=== PATIENT | female | born 1955 | race Caucasian/White ===

== ENCOUNTER → 2017-02-19 | Outpatient (CLI) | payer OTHER | END | disposition home or self-care (01) | LOC: LAB.O 08:40 | PROVIDERS: ATTEND Family Medicine | DX: E78.2 Mixed hyperlipidemia (principal); I10 Essential (primary) hypertension ==

== ENCOUNTER → 2017-04-01 | Outpatient (CLI) | payer OTHER | END | disposition home or self-care (01) | LOC: YCFC.O 11:54 | PROVIDERS: ATTEND Nurse Practitioner Family | DX: N39.0 Urinary tract infection, site not specified (principal) ==

== ENCOUNTER → 2017-04-08 | Outpatient (CLI) | payer OTHER | END | disposition home or self-care (01) | LOC: LAB.O 08:50 | PROVIDERS: ATTEND Family Medicine | DX: E74.39 Other disorders of intestinal carbohydrate absorption (principal); E78.2 Mixed hyperlipidemia ==

== ENCOUNTER → 2017-05-17 | Outpatient (CLI) | payer OTHER | END | disposition home or self-care (01) | LOC: LAB.O 08:27 | PROVIDERS: ATTEND Family Medicine | DX: E11.9 Type 2 diabetes mellitus without complications (principal) ==

== ENCOUNTER → 2017-06-24 | Outpatient (CLI) | payer OTHER ==
--- NOTE | 2017-06-28 12:08 | MAM ---
EXAM DESCRIPTION: 3D Diagnostic, Bilateral CLINICAL HISTORY: 62 yearsFemaleSCREENING. No complaints. Maternal grandmother with ovarian cancer. Mother with breast cancer. Hysterectomy. No HRT. COMPARISON: Digital 2-D bilateral screening examinations 02/25/2014 and 05/06/2012. No prior reports available. Reports from prior examinations also reviewed. Report from prior examination also reviewed. TECHNIQUE: Bilateral CC and MLO projection full-field images, 3-D tomosynthesis digital mammographic technique. Also bilateral synthesized CC/ MLO full-field images. CAD not utilized. FINDINGS: The breast parenchymal density pattern is: Scattered areas of fibroglandular density. No skin thickening or nipple retraction multiple bilateral solitary microcalcifications and also groups of large rounded coarse calcifications. 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 [place] mass density in the anterior third of the lower inner quadrant of the left breast at the 800 clock position contains a small calcification and is stable since the study in 2011, most likely a fibroadenoma. Other nodular densities with lobulated borders are also stable and most likely fibroadenomas. No new focal mass density, no focal asymmetry , and no suspicious microcalcifications bilaterally. Stable mammograms compared to prior study, taking into account differences in mammographic technique IMPRESSION: BI-RADS CATEGORY: 2 - BENIGN FINDINGS. FOLLOW UP: Routine digital bilateral screening, one year interval from May 2017. Written communication explaining the findings and follow-up, will be mailed to the patient and referring health care provider. According to the [employer], yearly mammograms are recommended starting at age 40 and continuing as long as a woman is in good health. Any breast change noted on a breast self-exam should be reported promptly to the patient's healthcare provider. Breast MRI is recommended for women with an approximately 20-25% or greater lifetime risk of breast cancer, including women with a strong family history of breast or ovarian cancer and women who have been treated for Hodgkin's disease. A negative mammographic report should not delay tissue diagnosis in patients with significant clinical history or physical findings. Extremely dense breast tissue limits the sensitivity of digital mammography. Electronically signed by: Juan West MD 06/28/2017 12:06 PM CDT Workstation: [id number]
== END ==
LOC: MAMMO 14:00
PROVIDERS: ATTEND Family Medicine
DX: Z12.31 Encounter for screening mammogram for malignant neoplasm of breast (principal)

== ENCOUNTER → 2017-08-12 | Outpatient (CLI) | payer OTHER | END | disposition home or self-care (01) | LOC: LAB.O 09:00 | PROVIDERS: ATTEND Family Medicine | DX: N30.00 Acute cystitis without hematuria (principal); E11.9 Type 2 diabetes mellitus without complications ==

== ENCOUNTER → 2017-08-21 | Outpatient (CLI) | payer OTHER ==
--- NOTE | 2017-08-22 09:27 | RAD ---
EXAM DESCRIPTION: IVP Intravenous Pyelogram CLINICAL HISTORY: 62 years Female, PERSONAL HISTORY OF URINARY (TRACT) INFECTIONS COMPARISON: None. TECHNIQUE: Supine AP logistics engineer image of the abdomen. Nonionic IV contrast injected followed by immediate AP kidneys. Five minute Supine AP abdomen and pelvis. 10 minute Bilateral supine oblique AP abdomen and pelvis. 10 minute AP pelvis. 15 minute AP supine abdomen and pelvis. 20 minute AP prone abdomen and pelvis. Post void AP supine abdomen and pelvis. No adverse reactions. FINDINGS: On the preliminary logistics engineer film, there is radiodense object overlying the left upper pole of the kidney as well as fecal material in the colon. Bowel gas pattern is nonspecific. Spondylosis in the lower lumbar spine. No other radiodense objects overlying the urinary urinary tracts. Bilateral kidneys with normal enhancement and normal position. No enlargement effacement or displacement of the bilateral collecting systems. Bilateral ureters normal caliber and position. Urinary bladder well-distended with contrast material with no filling defects. No effacement or displacement. No significant urinary retention after voiding. IMPRESSION: Excretory urogram is unremarkable. Difficult to evaluate for small radiodense stones in the kidneys bilaterally due to fecal material in the overlying colon. No hydronephrosis or hydroureter. Bladder unremarkable. CT scan of the abdomen and pelvis without IV contrast is a more sensitive examination to detect urinary tract stones. Electronically signed by: Juan West MD 08/22/2017 9:25 AM CDT
== END ==
LOC: RAD 08:59
PROVIDERS: ATTEND Family Medicine
DX: Z87.440 Personal history of urinary (tract) infections (principal)

== ENCOUNTER → 2017-09-30 | Outpatient (CLI) | payer OTHER | END | disposition home or self-care (01) | LOC: LAB.O 09:50 | PROVIDERS: ATTEND Family Medicine | DX: N30.00 Acute cystitis without hematuria (principal) ==

== ENCOUNTER → 2017-11-20 | Outpatient (CLI) | payer OTHER | END | disposition home or self-care (01) | LOC: LAB.O 08:59 | PROVIDERS: ATTEND Family Medicine | DX: E11.9 Type 2 diabetes mellitus without complications (principal); I10 Essential (primary) hypertension ==

== ENCOUNTER → 2018-01-03 | Outpatient (CLI) | payer BC, OTHER | LOC: LAB.O 14:13 | PROVIDERS: ATTEND Family Medicine | DX: N30.00 Acute cystitis without hematuria (principal) ==

== ENCOUNTER → 2018-01-21 | Outpatient (CLI) | payer BC, OTHER | LOC: LAB.O 09:02 | PROVIDERS: ATTEND Family Medicine | DX: E11.9 Type 2 diabetes mellitus without complications (principal) ==

== ENCOUNTER → 2018-06-10 | Outpatient (CLI) | payer BC, OTHER ==
--- NOTE | 2018-06-13 09:20 | MAM ---
EXAM DESCRIPTION: 3D Diagnostic, Bilateral: Digital Mammography CLINICAL HISTORY: 62 yearsFemaleNIPPLE DISCHARGE . No other complaints. Mother with breast cancer. Childbirth. Hysterectomy. No HRT. COMPARISON: Digital screening bilateral study 02/25/2014. 2-D bilateral diagnostic study 06/24/2017. Report from prior examination also reviewed. TECHNIQUE: Bilateral CC LM MLO projection full-field images, 3-D tomosynthesis digital mammographic technique. CAD not utilized. FINDINGS: The breast parenchymal density pattern is: Scattered areas of fibroglandular density. No skin thickening or nipple retraction scattered bilateral coarse calcifications and soft tissue densities. Most of the soft tissue densities containing groups of calcifications and are stable since the prior study. There are also groups of calcifications and solitary calcifications not associated with mass densities. Stable since the prior study. No new focal, stellate mass or density, focal asymmetry , and no suspicious microcalcifications bilaterally. Stable mammograms compared to prior study, taking into account differences in mammographic technique IMPRESSION: BI-RADS CATEGORY: 2 - BENIGN FINDINGS. FOLLOW UP: Routine digital bilateral screening, one year interval from May 2018. Written communication explaining the IMPRESSION and follow-up, will be mailed to the patient and referring health care provider. According to the [employer], yearly mammograms are recommended starting at age 40 and continuing as long as a woman is in good health. Any breast change noted on a breast self-exam should be reported promptly to the patient's healthcare provider. Breast MRI is recommended for women with an approximately 20-25% or greater lifetime risk of breast cancer, including women with a strong family history of breast or ovarian cancer and women who have been treated for Hodgkin's disease. A negative mammographic report should not delay tissue diagnosis in patients with significant clinical history or physical findings. Extremely dense breast tissue limits the sensitivity of digital mammography. Electronically signed by: Juan West MD 06/13/2018 9:19 AM CDT
== END ==
LOC: MAMMO 14:00
PROVIDERS: ATTEND Family Medicine
DX: N64.52 Nipple discharge (principal)
CPT/HCPCS: 77066; G0279

== ENCOUNTER → 2018-06-24 | Outpatient (CLI) | payer BC, OTHER | LOC: LAB.O 08:31 | PROVIDERS: ATTEND Family Medicine | DX: N64.52 Nipple discharge (principal) ==

== ENCOUNTER → 2018-08-20 | Outpatient (CLI) | payer BC, OTHER | LOC: LAB.O 08:38 | PROVIDERS: ATTEND Family Medicine | DX: N64.52 Nipple discharge (principal) ==

== ENCOUNTER → 2018-09-05 | Outpatient (CLI) | payer BC, OTHER ==
--- NOTE | 2018-09-05 17:11 | US ---
EXAM DESCRIPTION: Breast,Right: Ultrasound CLINICAL HISTORY: 63 yearsFemaleNIPPLE DISCHARGE. Intermittent in right breast since May 2018. Various colors and consistency of the discharge. Now dark, not bloody. COMPARISON: Digital diagnostic tomosynthesis bilateral breast 06/10/2018. TECHNIQUE: Transcutaneous scanning of the right breast utilizing vivas-scale and Doppler modes. Scanning performed by the hospitality services manager and Dr. West. FINDINGS: Scanning of the retroareolar right breast in all 4 quadrants. Mixed heterogeneous echotexture, predominantly fatty more than fibroglandular. At the 900 clock position, is an elongated hypoechoic structure surrounded by echogenic tissue. No abnormal vascularity. The hypoechoic segment ranges in size from 3.5 to 5.5 mm. This could represent a lymph node or a duct. No distinct cyst. No abnormal vascularity, parenchymal edema, or large calcifications. Overlying skin is unremarkable. IMPRESSION: BI-RADS CATEGORY: 3 - PROBABLY BENIGN. Management: Short interval (6-month) follow-up right breast ultrasound and diagnostic right breast digital mammography.. The FINDINGS and the FOLLOW-UP plan were reviewed in person with the patient after the examination. Written communication explaining the IMPRESSION and FOLLOW-UP will be mailed to the patient and referring care provider. Electronically signed by: Juan West MD 09/05/2018 5:10 PM CDT
== END ==
LOC: US 13:30
PROVIDERS: ATTEND Family Medicine
DX: R92.2 Inconclusive mammogram (principal)

== ENCOUNTER 2018-09-26 05:25 | Outpatient (CLI) | payer BC, OTHER ==
[2018-09-26] MEDS ORDERED: ceFAZolin SODIUM 1 GM VIAL ONE (06:59)
[2018-09-26] MEDS ORDERED: LACTATED RINGERS 1,000 ML ONE (06:59)
[2018-09-26] MEDS ORDERED: SODIUM CHL 0.9% 100ML MINI-BAG 100 ML IVPB ONE (06:59)
[2018-09-26] MEDS ORDERED: LIDOCAINE 1% 10 ML VIAL INJ ONE (07:00)
[2018-09-26] MEDS ORDERED: PROPOFOL 200 MG/20 ML VIAL IV ONE (07:00)
[2018-09-26 10:15] VITALS: O2SAT 95
[2018-09-26] MEDS ORDERED: SODIUM BICARBONATE VIAL 50 MEQ/50 ML VIAL ONE (11:43)
[2018-09-26] MEDS ORDERED: LIDOCAINE 1% 50 ML VIAL INJ ONE (11:43)
[2018-09-26] MEDS ORDERED: MIDAZOLAM INJ 2 MG/2 ML VIAL ONE ×2 (11:43→11:51)
[2018-09-26] MEDS ORDERED: fentaNYL CITRATE INJ 50 MCG/ML AMP ONE (11:43)
[2018-09-26 13:44] VITALS: BP 185/100; TEMP 98
== END 2018-09-26 12:50 | disposition home or self-care (01) ==
LOC: AMB 05:25 → EDSTATUS 11:15 → AMB 12:50
PROVIDERS: ATTEND Surgery
DX: N64.52 Nipple discharge (principal)
CPT/HCPCS: 36416; 80053; 81001; 82948; 85025; 93005; J0690; J2250; J3010; J3490; J7050; J7120

== ENCOUNTER → 2018-09-29 | Day surgery (SDC) | payer BC, OTHER ==
[~2018-09-29] MED LIST: LACTATED RINGERS 1,000 ML ONE; LIDOCAINE 1% 10 ML VIAL INJ ONE; LIDOCAINE 1% 50 ML VIAL INJ ONE; MIDAZOLAM INJ 5 MG/5 ML VIAL ONE; PROPOFOL 200 MG/20 ML VIAL IV ONE; SODIUM BICARBONATE VIAL 50 MEQ/50 ML VIAL ONE; SODIUM CHL 0.9% 100ML MINI-BAG 100 ML IVPB ONE; ceFAZolin SODIUM 1 GM VIAL ONE; fentaNYL CITRATE INJ 50 MCG/ML AMP ONE
--- NOTE | 2018-09-29 10:02 | RAD ---
EXAM DESCRIPTION: Chest,2 Views CLINICAL HISTORY: 63 years Female, pre op COMPARISON: Radiographs of the chest dated 12/16/2012. TECHNIQUE: PA and lateral radiographs of the chest were obtained. FINDINGS: Trachea is midline.The cardiomediastinal silhouette is normal in size. The pulmonary vasculature is within normal limits.The lungs are clear with no acute consolidation.No evidence of pleural effusions.No evidence of pneumothorax. IMPRESSION: No acute cardiopulmonary process. Electronically signed by: Jose G Wright MD 09/29/2018 10:01 AM [facility]
[2018-09-29 13:40] VITALS: BP 145/87; TEMP 97.3; O2SAT 98
--- NOTE | 2018-09-29 13:50 | OP ---
DATE OF PROCEDURE: 09/29/18 PREOPERATIVE DIAGNOSIS: 1. Right nipple discharge. POSTOPERATIVE DIAGNOSIS: 1. Right nipple discharge. PROCEDURE: 1. Exploration, right nipple and excision of subareolar tissue. SURGEON: Levon Orellana MD. TRUCK HOPPER: None. ANESTHESIA: Local infiltration of 1% lidocaine with bicarb and IV sedation by Anesthesia. INDICATION: The patient is a 63-year-old female who has had a dark nipple discharge for some time. Mammography and ultrasound do not reveal any discrete mass, so she was brought to the Surgical Suite today for exploration of the right nipple. FINDINGS: There was only a small amount of discharge at the time of procedure. We were unable to cannulate the duct, so tissue was removed below the duct and running radially, laterally and slightly inferiorly. PROCEDURE: After the patient was marked in the waiting area, she was brought to the Surgical Suite and placed in the supine position. She was prepped and draped in the usual sterile manner. A surgical time-out was taken. At this point, a periareolar incision was performed, first with a marking pen and then with infiltration of anesthesia. The skin was incised with a knife and then the areola was dissected from the deep breast tissue using electrocautery. When the nipple area was obtained, the leaking duct was pressed deeply and/or inferiorly using a sharp hemostat at the point of discharge. This tissue was then grasped and excised using sharp dissection. Hemostasis was obtained with electrocautery. This was sent as a specimen of subareolar tissue and a radial line of tissue was excised going laterally and inferiorly where pressing had obtained the discharge previously. Hemostasis was obtained with electrocautery. The wound was then irrigated with saline. Deep breast tissue was closed with interrupted 3-0 Vicryl sutures and the skin edge was reapproximated with 4-0 Nylon vertical mattress sutures. Sterile pressure dressing was applied. The patient tolerated the procedure well. Estimated blood loss was less than 10 mL. All sponge, needle and instrument counts were correct. #[id number] MTDD
== END | disposition home or self-care (01) ==
LOC: AMB 06:00
PROVIDERS: ATTEND Surgery
DX: N64.52 Nipple discharge (principal); R92.0 Mammographic microcalcification found on diagnostic imaging of breast; E11.9 Type 2 diabetes mellitus without complications; I10 Essential (primary) hypertension; E66.9 Obesity, unspecified; Z80.3 Family history of malignant neoplasm of breast; Z88.2 Allergy status to sulfonamides; Z79.84 Long term (current) use of oral hypoglycemic drugs; Z79.899 Other long term (current) drug therapy
CPT/HCPCS: 00400; 19101; 36416; 71046; 82948; J0690; J2250; J3010; J3490; J7050; J7120

== ENCOUNTER → 2019-01-13 | Outpatient (CLI) | payer BC, OTHER ==
--- NOTE | 2019-01-13 13:25 | US ---
EXAM DESCRIPTION: Breast,Right: Ultrasound CLINICAL HISTORY: 63 yearsFemaleAtrophy of breast. Benign biopsy right breast ductal disease. COMPARISON: Ultrasound targeted right breast 09/05/2018. Biopsy was performed after the ultrasound examination. TECHNIQUE: Transcutaneous scanning of the right breast utilizing vivas-scale and Doppler modes. Scanning performed by the grain loader and Dr. West. FINDINGS: Mixed hypoechoic and echogenic material at the 1000 clock position of the right breast in the region of prior biopsy. No dominant circumscribed mass is noted. Posterior acoustic shadowing posterior to tissue which is wider than tall orientation. No large calcifications or parenchymal edema. No distinct cyst. Small scar on the overlying skin. No abnormal vascularity. IMPRESSION: BI-RADS CATEGORY: 3 - PROBABLY BENIGN. Management: Short interval (6-month) follow-up bilateral diagnostic digital mammography and continued surveillance targeted right breast ultrasound in May 2019. The FINDINGS and the FOLLOW-UP plan were reviewed in person with the patient after the examination. Written communication explaining the IMPRESSION and FOLLOW-UP will be mailed to the patient and referring care provider. Electronically signed by: Juan West MD 01/13/2019 1:22 PM [facility]
== END ==
LOC: US 08:12
PROVIDERS: ATTEND Surgery
DX: N64.52 Nipple discharge (principal)

== ENCOUNTER → 2019-03-19 | Outpatient (CLI) | payer BC | LOC: LAB.O 13:24 | PROVIDERS: ATTEND Family Medicine | DX: I10 Essential (primary) hypertension (principal); E11.9 Type 2 diabetes mellitus without complications; E78.2 Mixed hyperlipidemia ==

== ENCOUNTER → 2019-09-14 | Outpatient (CLI) | payer BC | LOC: GMA MATASK 12:20 | PROVIDERS: ATTEND Family Medicine | DX: I10 Essential (primary) hypertension (principal) ==

== ENCOUNTER 2019-11-07 19:22 | Emergency (ER) | payer BC ==
[2019-11-07 20:12] VITALS: TEMP 98
--- NOTE | 2019-11-07 20:24 | RAD ---
EXAM DESCRIPTION: Knee,Left Complete CLINICAL HISTORY: left knee pain after fall yesterday COMPARISON: None FINDINGS: Three x-ray views of the left knee were submitted. There is an acute nondisplaced fracture of the lateral aspect of the patella.. There is no radiopaque foreign body material. IMPRESSION: Acute nondisplaced fracture of the lateral aspect of the patella. Electronically signed by: Vinnie Miller MD 11/07/2019 8:22 PM [facility]
[2019-11-07] MEDS ORDERED: traMADol HCL 50 MG TAB PO ONE (20:32)
[2019-11-07] MEDS ORDERED: traMADol HCL 50 MG TAB ONE (20:43)
--- NOTE | 2019-11-07 20:45 | ED.PDOC ---
History of Present Illness - General Chief Complaint: Lower Extremity Injury Time Seen by Provider: 11/07/19 19:33 Source: patient Exam Limitations: no limitations - History of Present Illness Initial Comments: The patient is a 64-year-old female presenting to emergency room secondary to left knee pain since yesterday. Apparently yesterday the patient was walking in a parking lot and tripped and hit her knee on the curb. She is having pain to the lateral lower aspect of the left knee. Tendon testing shows the patellar tendon complex is intact. Ligament testing shows no evidence of significant laxity or pain. The patient has tenderness to palpation with a mild abrasion over the lower outer patella on the left. No obvious crepitus. No other injuries. She is neurovascularly preserved distally. Timing/Duration: 24 hours Severity: moderate Improving Factors: immobilization Worsening Factors: movement Associated Symptoms: denies symptoms Allergies/Adverse Reactions: Allergies Sulfa Antibiotics Allergy (Unverified 03/30/14 01:45) Home Medications: Ambulatory Orders Cephalexin Monohydrate [Keflex] 1 capsule PO QAM 09/22/18 Escitalopram Oxalate 2 tablet PO QAM 09/22/18 Lisinopril 1 tablet PO QAM 09/22/18 Metformin HCl [Metformin Hydrochloride] 100 mg PO BIDFD 09/22/18 Rosuvastatin Calcium 1 tablet PO QAM 09/22/18 Chlorthalidone 25 mg PO DAILY 11/07/19 Duloxetine HCl 30 mg PO DAILY 11/07/19 Losartan Potassium 100 mg PO DAILY 11/07/19 Review of Systems - Review of Systems Constitutional: States: no symptoms reported EENTM: States: no symptoms reported Respiratory: States: no symptoms reported Cardiology: States: no symptoms reported Gastrointestinal/Abdominal: States: no symptoms reported Genitourinary: States: no symptoms reported Musculoskeletal: States: see HPI Skin: States: see HPI Neurological: States: no symptoms reported Endocrine: States: no symptoms reported All other Systems: No Change from Baseline Past Medical History (General) - Patient Medical History Hx Congestive Heart Failure: No Hx Diabetes: Yes - FSBS [id number] Hx MRSA: No Family Medical History - Family History Mother Family History: No Known Physical Exam - Physical Exam General Appearance: Alert, Comfortable, No apparent distress Eye Exam: bilateral normal Ears, Nose, Throat: hearing grossly normal Neck: full range of motion Respiratory: no respiratory distress, no accessory muscle use Cardiovascular/Chest: normal peripheral pulses, no edema Peripheral Pulses: radial,right: 2+, radial,left: 2+, dorsalis pedis,right: 2+, dorsalis pedis,left: 2+ Gastrointestinal/Abdominal: other - obese Rectal Exam: deferred Extremity: normal range of motion, no pedal edema, no calf tenderness, normal capillary refill, other - see history of present illness Neurologic: emergency room specialist II-XII nml as tested, alert, normal mood/affect, oriented x 3 Skin Exam: normal color - mild abrasion Comments: Vital Signs - 24 hr 11/07/19 19:23 Temperature 98 F Pulse Rate [ 75 Left Radial] Respiratory 17 Rate Blood Pressure 188/100 [Left Arm] O2 Sat by Pulse 98 Oximetry Progress - Progress Progress: 11/07/19 20:48 the patient's a 64-year-old female presenting to the emergency room secondary to left knee pain after a fall yesterday. The patient has a nondisp laced lower lateral patellar fracture. Patellar tendon complex is in place. The patient will be placed in a knee immobilizer. She is to ambulate carefully to prevent further falls. She can use Motrin or Tylenol for discomfort. She needs to be reevaluated in a couple of weeks with her primary care doctor. ER warnings are given for any acute worsening. [email or web address] [id number] - Results/Orders Results/Orders: x-ray of the left knee shows a nondisplaced lateral lower patellar fracture. Departure - Departure Clinical Impression: Left patella fracture Qualifiers: Encounter type: initial encounter Fracture type: closed Fracture morphology: unspecified fracture morphology Fracture alignment: nondisplaced Qualified Code(s): S82.002A - Unspecified fracture of left patella, initial encounter for closed fracture Disposition: Discharge to Home or Self Care Condition: Fair Departure Forms: ED Discharge - Pt. Copy, Patient Portal Self Enrollment Instructions: Patella Fracture (DC) Diet: regular diet Activity: increase activity as tolerated Referrals: Neto Daily MD [Primary Care Provider] - 1-2 Weeks Home Medications: Ambulatory Orders Cephalexin Monohydrate [Keflex] 1 capsule PO QAM 09/22/18 Escitalopram Oxalate 2 tablet PO QAM 09/22/18 Lisinopril 1 tablet PO QAM 09/22/18 Metformin HCl [Metformin Hydrochloride] 100 mg PO BIDFD 09/22/18 Rosuvastatin Calcium 1 tablet PO QAM 09/22/18 Chlorthalidone 25 mg PO DAILY 11/07/19 Duloxetine HCl 30 mg PO DAILY 11/07/19 Losartan Potassium 100 mg PO DAILY 11/07/19 Additional Instructions: the patient's a 64-year-old female presenting to the emergency room secondary to left knee pain after a fall yesterday. The patient has a nondisplaced lower lateral patellar fracture. Patellar tendon complex is in place. The patient will be placed in a knee immobilizer. She is to ambulate carefully to prevent further falls. She can use Motrin or Tylenol for discomfort. She needs to be reevaluated in a couple of weeks with her primary care doctor. ER warnings are given for any acute worsening.
[2019-11-07 21:40] VITALS: BP 168/99; O2SAT 97
== END 2019-11-07 21:30 | disposition home or self-care (01) ==
LOC: ER 19:22
DX: S82.002A Unspecified fracture of left patella, initial encounter for closed fracture (principal); E11.9 Type 2 diabetes mellitus without complications; W10.1XXA Fall (on)(from) sidewalk curb, initial encounter; Y93.01 Activity, walking, marching and hiking; Y92.481 Parking lot as the place of occurrence of the external cause; Z79.899 Other long term (current) drug therapy; Z79.4 Long term (current) use of insulin; Z88.2 Allergy status to sulfonamides

== ENCOUNTER 2020-06-27 18:36 | Emergency (ER) | payer BC ==
--- NOTE | 2020-06-27 18:45 | ED.PDOC ---
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 Patient reports she was carrying something heavy and walking backwards when she felt a sudden popping sensation in the posterolateral part of the left knee. She reports she fractured her left patella several mo nths ago and underwent nonoperative recovery. She reports she has been doing well until about 2 weeks ago when she began having pain in the left knee which she describes as pressure "like someone's fist in my knee" right behind the kneecap. The pain is gradually worsened since onset and further worsened this evening since the acute injury. And now also radiates to the postero-lateral aspect of the left knee, currently 7/10 severity, worse with weightbearing and walking which she is able to do but with pain. She does report mild swelling in the knee but denies any redness, warmth. She reports rare instability of the knee. She took ibuprofen 400 mg about 5 hours ago with little relief in pain. Allergies/Adverse Reactions: Allergies Sulfa Antibiotics Allergy (Unverified 06/27/20 18:54) Home Medications: Ambulatory Orders Metformin HCl [Metformin Hydrochloride] 100 mg PO BIDFD 09/22/18 Rosuvastatin Calcium 1 tablet PO QAM 09/22/18 Duloxetine HCl 30 mg PO DAILY 11/07/19 Acetaminophen W/ Codeine [Tylenol W/ CODEINE #3] 1 ea PO Q6H PRN 10 Days #10 ea 06/27/20 DULoxetine HCL [Cymbalta] 20 mg PO DAILY 06/27/20 Losartan Potassium [Cozaar] 50 mg PO DAILY 06/27/20 Rosuvastatin Calcium [Crestor] 40 mg PO DAILY 06/27/20 Review of Systems - Review of Systems Review of Systems: 06/27/20 19:08 as per HPI All other Systems: Reviewed and Negative Past Medical History (General) - Patient Medical History Hx Seizures: No Hx Stroke: No Hx Dementia: No Hx Asthma: No Hx of COPD: No Hx Cardiac Disorders: Yes Hx Congestive Heart Failure: No Hx Pacemaker: No Hx Hypertension: Yes Hx Thyroid Disease: No Hx Diabetes: Yes - FSBS 1051 169 Hx Gastroesophageal Reflux: No Hx Renal Disease: No Hx Cancer: No Hx of HIV: No Hx Hepatitis C: No Hx MRSA: No - Vaccination History Hx Tetanus, Diphtheria Vaccination: No Hx Influenza Vaccination: Yes Hx Pneumococcal Vaccination: No - Social History Hx Tobacco Use: No Hx Alcohol Use: No Hx Substance Use: No Hx Substance Use Treatment: No Hx Depression: No Family Medical History - Family History Mother Family History: No Known Physical Exam - Physical Exam General Appearance: Alert, Comfortable, No apparent distress, Obese Eye Exam: bilateral normal Ears, Nose, Throat: normal ENT inspection Neck: non-tender, full range of motion Respiratory: lungs clear, normal breath sounds, no respiratory distress Cardiovascular/Chest: normal peripheral pulses, no edema, no murmur, tachycardia Peripheral Pulses: radial,right: 2+, radial,left: 2+ Gastrointestinal/Abdominal: non tender, soft, no organomegaly Back Exam: normal inspection, no CVA tenderness, no vertebral tenderness Extremity: no pedal edema - Kiko sign negative BL. There is no laxity with ligament, no calf tenderness, normal capillary refill, other - Left knee appears mildly swollen without bruising or deformity or discoloration. Range of motion of the knee is mildly limited from -10degrees to +100 degrees flexion due to pain. There is minimal tenderness to palpation along the lateral aspect of the joint line. 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 Consider also fracture, DVT, meniscal injury, osteoarthritis flare, other -Obtain x-ray imaging of the left knee. Apply a cold pack and will give Toradol 60 mg IM for pain. Will obtain CBC, BMP, and d-dimer to try to rule out DVT. 06/27/20 19:52 -X-ray imaging of the left knee reveals no acute processes per my read. Mild degenerative changes/osteoarthritis as well as mild suprapatellar joint effusion noted. Labs reveal d-dimer level within normal reference range. Blood glucose level is elevated to 325. Discussed findings with patient. Suspect she has acute strain of the left knee. However, cannot rule out ligament or meniscal injury at this time. Advised that she will need to continue conservative measures for now and gradual return to normal activity. If knee pain persists or if she has continued or worsening instability of the left knee she may need further outpatient evaluation with orthopedic surgery referral and MRI imaging of the knee. -DVT of the left lower extremity is essentially ruled out by d-dimer. If symptoms persist she may need follow-up Doppler venous ultrasound imaging of the left lower extremity. She also needs to follow-up with her primary care physician for poorly controlled diabetes. -Discharge home in good condition, return warnings discussed at length. Lucho Byrd MD Billing #[id number] 06/27/20 18:45 Compress/Pack:Cold ONCE Laboratory Results - last 24 hr 06/27/20 06/27/20 06/27/20 19:23 19:23 19:23 WBC 8.6 RBC 4.54 Hgb 13.6 Hct 39.0 MCV 85.9 MCH 30.0 MCHC 35.0 RDW 13.2 Plt Count 363 MPV 8.1 Absolute Neuts (auto) 4.90 Absolute Lymphs (auto) 2.60 Absolute Monos (auto) 0.60 Absolute Eos (auto) 0.40 Absolute Basos (auto) 0.10 Neutrophils % 57.3 Lymphocytes % 30.2 Monocytes % 7.1 Eosinophils % 4.4 Basophils % 1.0 D-Dimer, Quantitative 140.0 Sodium 133 L Potassium 4.0 Chloride 102 Carbon Dioxide 22 Anion Gap 13.0 BUN 27 H Creatinine 0.74 BUN/Creatinine Ratio 36.5 H Random Glucose 325 H Serum Osmolality 284.1 Calcium 10.3 H Departure - Departure Clinical Impression: Strain of left knee Qualifiers: Encounter type: initial encounter Qualified Code(s): S86.912A - Strain of unspecified muscle(s) and tendon(s) at lower leg level, left leg, initial encounter Time of Disposition: 19:50 Disposition: Discharge to Home or Self Care Condition: Good Instructions: Knee Pain (DC) Diet: resume usual diet Activity: increase activity as tolerated Referrals: Neto Daily MD [Primary Care Provider] - 1-2 Weeks Prescriptions: Acetaminophen W/ Codeine [Tylenol W/ CODEINE #3] 1 ea PO Q6H PRN 10 Days #10 ea PRN Reason: Pain Home Medications: Ambulatory Orders Metformin HCl [Metformin Hydrochloride] 100 mg PO BIDFD 09/22/18 Rosuvastatin Calcium 1 tablet PO QAM 09/22/18 Duloxetine HCl 30 mg PO DAILY 11/07/19 Acetaminophen W/ Codeine [Tylenol W/ CODEINE #3] 1 ea PO Q6H PRN 10 Days #10 ea 06/27/20 DULoxetine HCL [Cymbalta] 20 mg PO DAILY 06/27/20 Losartan Potassium [Cozaar] 50 mg PO DAILY 06/27/20 Rosuvastatin Calcium [Crestor] 40 mg PO DAILY 06/27/20 Additional Instructions: Keep the left leg elevated often and apply a cold pack to the affected area for 15 to 20 minutes every 1-2 hours for the next 2 to 3 days to help limit pain and swelling. You may continue to take [id number] medications for pain relief such as ibuprofen 600 mg every 6 hours as needed and Tylenol 650 mg every 6 hours as needed. Return to the ED if you develop any concerning symptoms such as rapidly worsening swelling or redness or warmth of the knee or leg or symptoms of chest pain, shortness of breath, fevers, etc. Follow-up with your primary care physician in the next 1 to 2 weeks for repeat evaluation of your left knee pain is recommended. You also need repeat evaluation of your blood glucose level which was found to be elevated today.
[2020-06-27 18:57] VITALS: TEMP 97.5
[2020-06-27] MEDS ORDERED: KETOROLAC TROMETHAMINE INJ 60 MG/2 ML VIAL IM ONE (19:04)
--- NOTE | 2020-06-27 19:12 | RAD ---
EXAM DESCRIPTION: XR Knee, Left 1 or 2 Views CLINICAL HISTORY: 65 years Female Fall, knee pain and swelling TECHNIQUE: Three views of the left knee are provided. COMPARISON: 11/07/2019 FINDINGS: There is no acute left knee fracture or dislocation. Trace suprapatellar joint effusion. Minimal tricompartmental osteoarthritis most pronounced in the patellofemoral compartment. Small inferior patellar enthesophyte. No aggressive osseous lesion. IMPRESSION: Trace suprapatellar joint effusion with minimal osteoarthritis. No fracture or dislocation. Electronically signed by: Michelle Leon MD 06/27/2020 7:11 PM CDT
[2020-06-27 20:05] VITALS: BP 141/87; O2SAT 94
== END 2020-06-27 20:20 | disposition home or self-care (01) ==
LOC: ER 18:36
DX: S86.912A Strain of unspecified muscle(s) and tendon(s) at lower leg level, left leg, initial encounter (principal); I51.9 Heart disease, unspecified; E11.9 Type 2 diabetes mellitus without complications; I10 Essential (primary) hypertension; X50.9XXA Other and unspecified overexertion or strenuous movements or postures, initial encounter; Y93.01 Activity, walking, marching and hiking; Y92.009 Unspecified place in unspecified non-institutional (private) residence as the place of occurrence of the external cause; Z87.81 Personal history of (healed) traumatic fracture; Z79.899 Other long term (current) drug therapy; Z79.84 Long term (current) use of oral hypoglycemic drugs; Z88.2 Allergy status to sulfonamides
CPT/HCPCS: 36415; 73560; 80048; 85025; 85379; J1885